=== PATIENT | male | born 1970 | race Caucasian/White ===

== ENCOUNTER 2018-01-05 10:11 | Emergency (ER) | payer BC ==
[2018-01-05] MEDS ORDERED: SODIUM CHLORIDE 0.9% 500 ML IV STA (11:17)
--- NOTE | 2018-01-05 11:20 | ED ---
General Adult HPI - General Chief complaint: Abdominal Pain Stated complaint: Right lower abdominal pain Time Seen by Provider: 01/05/18 10:41 Source: patient, RN notes reviewed Mode of arrival: ambulatory Limitations: no limitations - History of Present Illness Initial comments: 47-year-old male with no significant past medical history presents for evaluation of right upper quadrant pain. Patient was seen at an outside emergency department for same pain Friday night. This began shortly after eating. He had several episodes of nausea and vomiting. This is been resolving over the past 24 hours. He has had persistent diarrhea throughout the past 3 days. Pain is constant in nature, localized to the right upper quadrant and right flank. He denies any dysuria. Denies any lower abdominal pain. Denies hematuria. Denies testicular or scrotal pain. Denies cough or cold symptoms. Denies central chest pain. Laboratory studies and computed tomography scan are available for review from previous ER visit. - Related Data Home Medications Medication Instructions Recorded Confirmed Unknown Otc Acid Bottom Filler 1 tab PO DAILY PRN 01/05/18 01/05/18 Previous Rx's Medication Instructions Recorded Ibuprofen [Motrin] 600 mg PO Q8HR PRN #24 tab 01/05/18 Allergies Allergy/AdvReac Type Severity Reaction Status Date / Time No Known Allergies Allergy Verified 01/05/18 10:26 Review of Systems ROS Statement: Those systems with pertinent positive or pertinent negative responses have been documented in the HPI. ROS Other: All systems not noted in ROS Statement are negative. Past Medical History Past Medical History: No Reported History History of Any Multi-Drug Resistant Organisms: None Reported Past Surgical History: Hernia Repair Past Psychological History: No Psychological Hx Reported Smoking Status: Former smoker Past Alcohol Use History: None Reported Past Drug Use History: None Reported General Exam Limitations: no limitations General appearance: alert, in no apparent distress Head exam: Present: atraumatic, normocephalic Eye exam: Present: normal appearance, PERRL ENT exam: Present: normal exam Neck exam: Present: normal inspection. Absent: tenderness, meningismus Respiratory exam: Present: normal lung sounds bilaterally. Absent: respiratory distress Cardiovascular Exam: Present: regular rate, normal rhythm GI/Abdominal exam: Present: soft, tenderness (Mild right upper quadrant tenderness to palpation). Absent: distended, guarding, rebound Extremities exam: Present: normal inspection, normal capillary refill Back exam: Present: CVA tenderness (R) Neurological exam: Present: alert, oriented X3 Psychiatric exam: Present: normal affect, normal mood Skin exam: Present: warm, dry, intact. Absent: cyanosis, diaphoretic Course Vital Signs 01/05/18 10:15 Temperature 98.1 F Pulse Rate 70 Respiratory 20 Rate Blood Pressure 133/86 O2 Sat by Pulse 99 Oximetry Medical Decision Making - Medical Decision Making 47-year-old male presenting for reevaluation of right upper quadrant pain. CT was reviewed from previous ER visit, this was negative for any acute causes to explain the patient's right upper quadrant pain. Laboratory studies were Obtained, normal white blood cell count, stable hemoglobin. Lites within normal limits. Liver enzymes and total bili are within normal limits. Ultrasound is obtained, this is negative for acute cholecystitis, normal common bile duct dilatation. Chest x-ray negative for pneumonia. X-ray negative for obstruction or intraperitoneal free air. Patient will modify his diet, stop drinking pop, he will take Motrin for the pain. He will follow-up with his primary care physician and return with any worsening or changing symptoms. - Lab Data Result diagrams: 01/05/18 10:35 01/05/18 10:35 Lab Results 01/05/18 01/05/18 01/05/18 Range/Units 10:35 10:35 10:35 WBC 4.7 (3.8-10.6) k/uL RBC 5.18 (4.30-5.90) m/uL Hgb 15.3 (13.0-17.5) gm/dL Hct 43.9 (39.0-53.0) % MCV 84.8 (80.0-100.0) fL MCH 29.6 (25.0-35.0) pg MCHC 34.9 (31.0-37.0) g/dL RDW 12.1 (11.5-15.5) % Plt Count 239 (150-450) k/uL Neutrophils % 63 % Lymphocytes % 26 % Monocytes % 6 % Eosinophils % 3 % Basophils % 1 % Neutrophils # 2.9 (1.3-7.7) k/uL Lymphocytes # 1.2 (1.0-4.8) k/uL Monocytes # 0.3 (0-1.0) k/uL Eosinophils # 0.1 (0-0.7) k/uL Basophils # 0.0 (0-0.2) k/uL PT (9.0-12.0) sec INR (<1.2) APTT (22.0-30.0) sec Sodium 143 (137-145) mmol/L Potassium 4.4 (3.5-5.1) mmol/L Chloride 107 (98-107) mmol/L Carbon Dioxide 26 (22-30) mmol/L Anion Gap 10 mmol/L BUN 12 (9-20) mg/dL Creatinine 0.92 (0.66-1.25) mg/dL Est GFR (MDRD) Af Amer >60 (>60 ml/min/1.73 sqM) Est GFR (MDRD) Non-Af >60 (>60 ml/min/1.73 sqM) Glucose 89 (74-99) mg/dL Plasma Lactic Acid Alexis 1.1 (0.7-2.0) mmol/L Calcium 9.9 (8.4-10.2) mg/dL Total Bilirubin 0.5 (0.2-1.3) mg/dL AST 28 (17-59) U/L ALT 54 (21-72) U/L Alkaline Phosphatase 72 (38-126) U/L Total Protein 7.1 (6.3-8.2) g/dL Albumin 4.3 (3.5-5.0) g/dL Amylase 52 (30-110) U/L Lipase 72 (23-300) U/L Urine Color Urine Appearance (Clear) Urine pH (5.0-8.0) Ur Specific [place] (1.001-1.035) Urine Protein (Negative) Urine Glucose (UA) (Negative) Urine Ketones (Negative) Urine Blood (Negative) Urine Nitrite (Negative) Urine Bilirubin (Negative) Urine Urobilinogen (<2.0) mg/dL Ur Leukocyte Esterase (Negative) 01/05/18 01/05/18 Range/Units 10:35 10:35 WBC (3.8-10.6) k/uL RBC (4.30-5.90) m/uL Hgb (13.0-17.5) gm/dL Hct (39.0-53.0) % MCV (80.0-100.0) fL MCH (25.0-35.0) pg MCHC (31.0-37.0) g/dL RDW (11.5-15.5) % Plt Count (150-450) k/uL Neutrophils % % Lymphocytes % % Monocytes % % Eosinophils % % Basophils % % Neutrophils # (1.3-7.7) k/uL Lymphocytes # (1.0-4.8) k/uL Monocytes # (0-1.0) k/uL Eosinophils # (0-0.7) k/uL Basophils # (0-0.2) k/uL PT 10.2 (9.0-12.0) sec INR 1.0 (<1.2) APTT 22.9 (22.0-30.0) sec Sodium (137-145) mmol/L Potassium (3.5-5.1) mmol/L Chloride (98-107) mmol/L Carbon Dioxide (22-30) mmol/L Anion Gap mmol/L BUN (9-20) mg/dL Creatinine (0.66-1.25) mg/dL Est GFR (MDRD) Af Amer (>60 ml/min/1.73 sqM) Est GFR (MDRD) Non-Af (>60 ml/min/1.73 sqM) Glucose (74-99) mg/dL Plasma Lactic Acid Alexis (0.7-2.0) mmol/L Calcium (8.4-10.2) mg/dL Total Bilirubin (0.2-1.3) mg/dL AST (17-59) U/L ALT (21-72) U/L Alkaline Phosphatase (38-126) U/L Total Protein (6.3-8.2) g/dL Albumin (3.5-5.0) g/dL Amylase (30-110) U/L Lipase (23-300) U/L Urine Color Yellow Urine Appearance Clear (Clear) Urine pH 7.0 (5.0-8.0) Ur Specific [place] 1.015 (1.001-1.035) Urine Protein Negative (Negative) Urine Glucose (UA) Negative (Negative) Urine Ketones Negative (Negative) Urine Blood Negative (Negative) Urine Nitrite Negative (Negative) Urine Bilirubin Negative (Negative) Urine Urobilinogen <2.0 (<2.0) mg/dL Ur Leukocyte Esterase Negative (Negative) Disposition Clinical Impression: Abdominal pain Disposition: HOME SELF-CARE Condition: Good Instructions: Abdominal Pain (ED) Prescriptions: Ibuprofen [Motrin] 600 mg PO Q8HR PRN #24 tab PRN Reason: Pain Referrals: None,Stated [Primary Care Provider] - 1-2 days Lyn Shea MD [REFERRING] - 1-2 days Time of Disposition: 12:46
[2018-01-05 11:37] LABS: Appearance,Urine Clear (Clear); Basophils % (A) 1 %; Bilirubin,Urine Negative (Negative); Blood,Urine Negative (Negative); Color,Urine Yellow; Eosinophils # (A) 0.1 k/uL (0-0.7); Eosinophils % (A) 3 %; Glucose,Urine (UA) Negative (Negative); HCT 43.9 % (39.0-53.0); HGB 15.3 gm/dL (13.0-17.5); Ketones,Urine Negative (Negative); Leukocyte Esterase,Urine Negative (Negative); Lymphocytes # (A) 1.2 k/uL (1.0-4.8); Lymphocytes % (A) 26 %; MCH 29.6 pg (25.0-35.0); MCHC 34.9 g/dL (31.0-37.0); MCV 84.8 fL (80.0-100.0); Mean Platelet Volume 6.5; Monocytes # (A) 0.3 k/uL (0-1.0); Monocytes % (A) 6 %; Neutrophils # (A) 2.9 k/uL (1.3-7.7); Neutrophils % (A) 63 %; Nitrite,Urine Negative (Negative); Platelet Count 239 k/uL (150-450); Protein,Urine Negative (Negative); RBC 5.18 m/uL (4.30-5.90); RDW 12.1 % (11.5-15.5); Specific Gravity,Urine 1.015 (1.001-1.035); Urobilinogen,Urine <2.0 mg/dL (<2.0); WBC 4.7 k/uL (3.8-10.6)
--- NOTE | 2018-01-05 11:38 | XR ---
EXAMINATION TYPE: XR chest 2V DATE OF EXAM: 01/05/2018 COMPARISON: NONE HISTORY: Chest pain TECHNIQUE: Frontal and lateral views of the chest are obtained. FINDINGS: There is no focal air space opacity. No evidence for pneumothorax. No pleural effusion. The cardiac silhouette size is within normal limits. The osseous structures are grossly intact. IMPRESSION: 1. No acute cardiopulmonary process.
--- NOTE | 2018-01-05 11:39 | XR ---
EXAMINATION TYPE: XR KUB DATE OF EXAM: 01/05/2018 COMPARISON: NONE HISTORY: Pain TECHNIQUE: Single supine KUB image of the abdomen is obtained FINDINGS: Small bowel demonstrates no evidence for dilatation or air fluid levels. Gas and fecal material is seen in non-distended colon. No convincing evidence for pneumoperitoneum. No unusual calcifications. The lung bases are clear. The osseous structures are intact. IMPRESSION: 1. Overall nonobstructive bowel gas pattern.
[2018-01-05 11:47] LABS: ALT 54 U/L (21-72); AST 28 U/L (17-59); Albumin 4.3 g/dL (3.5-5.0); Alkaline Phosphatase 72 U/L (38-126); Amylase 52 U/L (30-110); Anion Gap 10 mmol/L; Blood Urea Nitrogen 12 mg/dL (9-20); Calcium 9.9 mg/dL (8.4-10.2); Carbon Dioxide 26 mmol/L (22-30); Chloride 107 mmol/L (98-107); Glucose 89 mg/dL (74-99); Lipase 72 U/L (23-300); Potassium 4.4 mmol/L (3.5-5.1); Sodium 143 mmol/L (137-145); Total Bilirubin 0.5 mg/dL (0.2-1.3); Total Protein 7.1 g/dL (6.3-8.2)
[2018-01-05 11:58] LABS: Partial Thromboplastin Time 22.9 sec (22.0-30.0); Prothrombin Time 10.2 sec (9.0-12.0)
--- NOTE | 2018-01-05 12:14 | US ---
EXAMINATION TYPE: US abdomen limited DATE OF EXAM: 01/05/2018 COMPARISON: NONE CLINICAL HISTORY: abdominal pain. EXAM MEASUREMENTS: Liver Length: 13.9 cm Gallbladder Wall: 0.2 cm CBD: 0.2 cm Right Kidney: 11.3 x 4.5 x 5.3 cm Pancreas: Tail obscured by overlying bowel gas Liver: wnl Gallbladder: wnl Evidence for sonographic Santiago's sign: no CBD: wnl Right Kidney: wnl IMPRESSION: 1. No acute process.
[2018-01-05 12:55] VITALS: BP 124/78; PULSE 97; RESP 16; TEMP 967.7
== END 2018-01-05 12:55 | disposition home or self-care (01) ==
LOC: EC 10:11
DX: R10.11 Right upper quadrant pain (principal); R11.2 Nausea with vomiting, unspecified; R19.7 Diarrhea, unspecified; Z87.891 Personal history of nicotine dependence
CPT/HCPCS: 36415; 71046; 74018; 76705; 80053; 81003; 82150; 83605; 83690; 85025; 85610; 85730; 96360; 99285

== ENCOUNTER 2018-06-23 06:45 | Day surgery (SDC) | payer BC ==
[2018-06-17 15:06] VITALS: BMI 24.4
[~2018-06-23 06:45] MED LIST: DEXAMETHASONE SOD PHOSPHATE 10 MG/ML 1 ML VIAL IV ONE; HEPARIN SODIUM,PORCINE 5,000 UNIT/ML 1 ML VIAL SQ ONE; HYDROmorphone 0.5 MG/0.5 ML SYRINGE IVP PRN; LIDOCAINE 1% 20 ML VIAL (10MG/ML) FOR IV START INTRADERMA PRN; MIDAZOLAM 2 MG/2 ML VIAL IV PRN; ONDANSETRON 4 MG/2 ML VIAL IVP ONE; SCOPOLAMINE 1.5MG/72HR PATCH TRANSDERM ONE; ceFAZolin IN SWFI 2 GM/20 ML SYRINGE IVP ONE
[2018-06-23] MEDS ORDERED: LACTATED RINGERS 1,000 ML IV ONE (07:02)
--- NOTE | 2018-06-23 07:48 | P.GSHP ---
History of Present Illness H&P Date: 06/23/18 Chief Complaint: Right upper quadrant pain This is a 47-year-old male who said complaints of right upper quadrant pain. His recent HIDA scan shows evidence of biliary dysfunction. He presents today for laparoscopic cholecystectomy. Past Medical History Past Medical History: No Reported History History of Any Multi-Drug Resistant Organisms: None Reported Past Surgical History: Hernia Repair Additional Past Surgical History / Comment(s): inguinal rt Past Anesthesia/Blood Transfusion Reactions: No Reported Reaction Smoking Status: Former smoker - Past Family History Mother Family Medical History: Cancer Additional Family Medical History / Comment(s): breast Medications and Allergies Home Medications Medication Instructions Recorded Confirmed Type Ibuprofen [Motrin] 600 mg PO Q8HR PRN #24 tab 01/05/18 06/17/18 Rx Allergies Allergy/AdvReac Type Severity Reaction Status Date / Time No Known Allergies Allergy Verified 06/17/18 14:55 Surgical - Exam Vital Signs Temp Pulse Resp BP Pulse Ox 97.8 F 79 18 137/77 98 06/23/18 06:59 06/23/18 06:59 06/23/18 06:59 06/23/18 06:59 06/23/18 06:59 - General well developed, no distress - Eyes PERRL - ENT normal pinna - Neck no masses - Respiratory normal expansion - Cardiovascular Rhythm: regular - Abdomen Abdomen: soft, non tender Assessment and Plan Assessment: Chronic cholecystitis Biliary dysfunction We'll perform laparoscopic cholecystectomy
[2018-06-23] MEDS ORDERED: BUPIVACAINE-EPI 0.5%-1:200,000 10 ML VIAL SQ ONE ×2 (07:49)
[2018-06-23] MEDS ORDERED: ROCURONIUM BROMIDE 10 MG/ML 10 ML VIAL IV ONE (07:55)
[2018-06-23] MEDS ORDERED: MIDAZOLAM 2 MG/2 ML VIAL ONE (07:55)
[2018-06-23] MEDS ORDERED: HYDROmorphone (PF) 1 MG/ML ONE (07:55)
[2018-06-23] MEDS ORDERED: KETOROLAC 30 MG/ML 1 ML VIAL ONE (07:55)
[2018-06-23] MEDS ORDERED: SUCCINYLCHOLINE CHLORIDE 100 MG/5 ML SYR IV ONE (07:55)
[2018-06-23] MEDS ORDERED: LIDOCAINE 1% INJ 10MG/ML (20 ML MDV) ONE (07:55)
[2018-06-23] MEDS ORDERED: NEOSTIGMINE 1 MG/ML 10 ML VIAL ONE (07:55)
[2018-06-23] MEDS ORDERED: PROPOFOL 10 MG/ML 20 ML VIAL IV ONE (07:55)
[2018-06-23] MEDS ORDERED: GLYCOPYRROLATE 0.2 MG/ML 2 ML VIAL ONE (07:55)
[2018-06-23] MEDS ORDERED: fentaNYL (PF) 50 MCG/ML 2 ML AMP ONE (07:55)
[2018-06-23 08:50] VITALS: TEMP 97
[2018-06-23] MEDS ORDERED: diphenhydrAMINE 50 MG/ML 1 ML VIAL IVP ONE (08:54)
--- NOTE | 2018-06-23 08:56 | P.OP ---
Date of Procedure: 06/23/18 Preoperative Diagnosis: Cholecystitis Postoperative Diagnosis: Cholecystitis Procedure(s) Performed: Laparoscopic cholecystectomy Anesthesia: DAVINA Surgeon: Nelson Aviles Pathology: none sent Condition: stable Disposition: PACU Description of Procedure: The patient was placed on the operating table. The patient received a general endotracheal tube anesthesia. The patients abdomen was prepped and draped in the usual sterile fashion. Through an infraumbilical stab incision, the fascia of the anterior abdominal wall was grasped with a pair of Kochers and then the Veress needle was placed in the peritoneal cavity. Position of the Veress needle was confirmed with positive drop test. The abdomen was then insufflated. After adequate insufflation, the 10 mm trocar was placed in the peritoneal cavity. Following this the laparoscope was placed in the peritoneal cavity. The patient was placed in the head-up, right side up position and then a 5 mm trocar was placed in the right lateral and right subcostal position under direct visualization. A 8 mm trocar was placed in the epigastric position. The gallbladder was grasped in the fundus and infundibulum. Traction on the gallbladder was placed in the lateral and the cephalad positions. The triangle of Calot was visualized.. The cystic duct was bluntly dissected until the union of the cystic duct and common bile duct was seen. The cystic duct was then divided and sealed with the Harmonic scissors. A PDS Endoloop was then placed throughout the cystic duct stump. The cystic artery divided and sealed with the Harmonic scissors. The gallbladder was then removed from the liver bed using Harmonic scissors. The gallbladder was then extracted through the epigastric port site. Operative field was checked for any bleeding spots and Harmonic scissors was used to coagulate the liver bed. The abdomen was irrigated. The trocars were removed. The skin was closed using interrupted 3-0 Vicryl suture. Dermabond dressing were applied. The patient tolerated the procedure well.
[2018-06-23 09:02] VITALS: RESP 16
[2018-06-23] MEDS: LACTATED RINGERS 1,000 ML IV SCH ×2 (09:08→09:20)
[2018-06-23] MEDS ORDERED: HYDROcodone/APAP 7.5-325MG 1 EACH TAB PO ONE (09:40)
[2018-06-23 10:46] VITALS: BP 121/74; PULSE 71
== END 2018-06-23 11:21 | disposition home or self-care (01) ==
LOC: OR 06:45
PROVIDERS: ATTEND Surgery
DX: K81.1 Chronic cholecystitis (principal); Z87.891 Personal history of nicotine dependence; Z80.3 Family history of malignant neoplasm of breast
CPT/HCPCS: 47562; 88304; J2250; J1200; J1644; J1100; J2710; J2405; J2001; J3010; J1885; J1170; J0330; J2704; J0690

== ENCOUNTER 2018-10-29 15:08 | Emergency (ER) | payer BC ==
[2018-10-29 15:19] VITALS: TEMP 98
--- NOTE | 2018-10-29 15:47 | XR ---
EXAMINATION TYPE: XR chest 2V DATE OF EXAM: 10/29/2018 COMPARISON: Chest x-ray January 05, 2018. HISTORY: Chest pain. TECHNIQUE: Frontal and lateral views of the chest are obtained. FINDINGS: There is no focal air space opacity, pleural effusion, or pneumothorax seen. The cardiac silhouette size is within normal limits. The osseous structures are intact. IMPRESSION: No acute process. No significant change from prior.
[2018-10-29 17:25] LABS: Basophils % (A) 1 %; Eosinophils # (A) 0.2 k/uL (0-0.7); Eosinophils % (A) 3 %; HCT 45.1 % (39.0-53.0); HGB 15.7 gm/dL (13.0-17.5); Lymphocytes # (A) 1.7 k/uL (1.0-4.8); Lymphocytes % (A) 28 %; MCH 29.6 pg (25.0-35.0); MCHC 34.8 g/dL (31.0-37.0); MCV 85.2 fL (80.0-100.0); Mean Platelet Volume 6.3; Monocytes # (A) 0.3 k/uL (0-1.0); Monocytes % (A) 5 %; Neutrophils # (A) 3.7 k/uL (1.3-7.7); Neutrophils % (A) 62 %; Platelet Count 245 k/uL (150-450); RDW 12.3 % (11.5-15.5)
[2018-10-29 17:35] LABS: Creatine Kinase 79 U/L (55-170)
[2018-10-29 17:37] LABS: ALT 71 U/L (21-72); AST 40 U/L (17-59); Albumin 4.6 g/dL (3.5-5.0); Alkaline Phosphatase 72 U/L (38-126); Anion Gap 8 mmol/L; Blood Urea Nitrogen 14 mg/dL (9-20); Calcium 9.9 mg/dL (8.4-10.2); Carbon Dioxide 27 mmol/L (22-30); Chloride 107 mmol/L (98-107); Glucose 99 mg/dL (74-99); Magnesium 2.1 mg/dL (1.6-2.3); Potassium 4.3 mmol/L (3.5-5.1); Sodium 142 mmol/L (137-145); Total Bilirubin 0.3 mg/dL (0.2-1.3); Total Protein 7.9 g/dL (6.3-8.2)
[2018-10-29 17:48] LABS: Creatine Kinase MB 0.4 ng/mL (0.0-2.4); Partial Thromboplastin Time 22.8 sec (22.0-30.0); Prothrombin Time 9.7 sec (9.0-12.0); Troponin I <0.012 ng/mL (0.000-0.034)
--- NOTE | 2018-10-29 18:24 | ED ---
General Adult HPI - General Chief complaint: Chest Pain Stated complaint: Chest pain, back pain Time Seen by Provider: 10/29/18 18:00 Source: patient, RN notes reviewed Mode of arrival: ambulatory Limitations: no limitations - History of Present Illness Initial comments: 47-year-old male without significant PMH presents to the emergency department with a chief complaint of chest pain 7 days. Patient describes the pain as a burning pain in the center of his chest. He denies any radiating pain. Patient states eating and drinking makes this worse. He states otherwise it is a persistent burning pain, denies alleviating factors. Does admit to a history of GERD. Patient denies any abdominal pain. He states he did have his gallbladder removed 2 months ago. He denies any cardiac history. He also complains of left flank pain 7 days. He states hunching forward seems to make this flank pain better and laying down or standing up straight makes the pain worse. He describes the pain as an aching pain. He denies any midline back pain. Denies saddle anesthesia. 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 He admits to urinary frequency states this has been going on for months. He denies any burning with urination or pain with urination. He denies any fevers or chills at home. Patient has no other complaints at this time including shortness of breath, abdominal pain, nausea or vomiting, headache, or visual changes. - Related Data Previous Rx's Medication Instructions Recorded Famotidine [Pepcid] 20 mg PO BID #20 tablet 10/29/18 Allergies Allergy/AdvReac Type Severity Reaction Status Date / Time No Known Allergies Allergy Verified 10/29/18 18:44 Review of Systems ROS Statement: Those systems with pertinent positive or pertinent negative responses have been documented in the HPI. ROS Other: All systems not noted in ROS Statement are negative. Past Medical History Past Medical History: No Reported History History of Any Multi-Drug Resistant Organisms: None Reported Past Surgical History: Hernia Repair Additional Past Surgical History / Comment(s): inguinal rt Past Anesthesia/Blood Transfusion Reactions: No Reported Reaction Past Psychological History: No Psychological Hx Reported Smoking Status: Former smoker Past Alcohol Use History: None Reported Past Drug Use History: None Reported - Past Family History Mother Family Medical History: Cancer Additional Family Medical History / Comment(s): breast General Exam Limitations: no limitations General appearance: alert, in no apparent distress Head exam: Present: atraumatic, normocephalic, normal inspection Eye exam: Present: normal appearance, PERRL, EOMI. Absent: scleral icterus, conjunctival injection, periorbital swelling ENT exam: Present: normal exam, normal oropharynx, mucous membranes moist, TM's normal bilaterally, normal external ear exam Neck exam: Present: normal inspection, full ROM. Absent: tenderness, meningismus, lymphadenopathy Respiratory exam: Present: normal lung sounds bilaterally. Absent: respiratory distress, wheezes, rales, rhonchi, stridor Cardiovascular Exam: Present: regular rate, normal rhythm, normal heart sounds. Absent: systolic murmur, diastolic murmur, rubs, gallop, clicks GI/Abdominal exam: Present: soft, normal bowel sounds. Absent: distended, tenderness (No tenderness whatsoever noted to the epigastric area or right or left upper or lower quadrants.), guarding, rebound, rigid Back exam: Present: tenderness (tenderness to palpation of the left flank), CVA tenderness (L) (minimal Left CVA tenderness). Absent: vertebral tenderness (no midline or vertebral tenderness) Neurological exam: Present: alert, oriented X3, CN II-XII intact Psychiatric exam: Present: normal affect, normal mood Course Vital Signs 10/29/18 10/29/18 10/29/18 15:15 18:59 20:30 Temperature 98.0 F Pulse Rate 76 70 74 Respiratory 18 16 16 Rate Blood Pressure 137/88 139/88 139/88 O2 Sat by Pulse 99 99 98 Oximetry EKG Findings - EKG Comments: EKG Findings:: Normal sinus rhythm, ventricular rate 64, LA interval 140, QTC 402, no evidence of ST elevation or depression. Medical Decision Making - Medical Decision Making 47-year-old male presents to the emergency department for a chief complaint of burning chest pain worsened after eating for 7 days. Patient had his gallbladder removed about 2 months ago. He denies any abdominal pain. No abdominal tenderness on exam. Lungs are clear to addition bilaterally. Patient also has left flank pain, denies any midline pain. Denies any bladder or bowel changes or saddle anesthesia. Tender to palpation of the left flank. Vitals are stable, patient is well-appearing. CBC and CMP are unremarkable. Troponin negative. This was repeated after 3 hours. Urine does not show any evidence of infection. CT was ordered as patient's complaint involved chest pain as well as back pain to rule out any aortic abnormalities which was negative. However, patient does have a small hiatal hernia which could be causing his pain. Patient was given a GI cocktail and is feeling somewhat better in the emergency department. He was given a prescription for Pepcid. He will follow up with his primary care for this. He does have an appointment. Did discuss returning if he has any worsening symptoms which he is aware of. - Lab Data Result diagrams: 10/29/18 17:09 10/29/18 17:09 Lab Results 10/29/18 10/29/18 10/29/18 Range/Units 17:09 17:09 17:09 WBC 6.0 (3.8-10.6) k/uL RBC 5.30 (4.30-5.90) m/uL Hgb 15.7 (13.0-17.5) gm/dL Hct 45.1 (39.0-53.0) % MCV 85.2 (80.0-100.0) fL MCH 29.6 (25.0-35.0) pg MCHC 34.8 (31.0-37.0) g/dL RDW 12.3 (11.5-15.5) % Plt Count 245 (150-450) k/uL Neutrophils % 62 % Lymphocytes % 28 % Monocytes % 5 % Eosinophils % 3 % Basophils % 1 % Neutrophils # 3.7 (1.3-7.7) k/uL Lymphocytes # 1.7 (1.0-4.8) k/uL Monocytes # 0.3 (0-1.0) k/uL Eosinophils # 0.2 (0-0.7) k/uL Basophils # 0.0 (0-0.2) k/uL PT (9.0-12.0) sec INR (<1.2) APTT (22.0-30.0) sec Sodium 142 (137-145) mmol/L Potassium 4.3 (3.5-5.1) mmol/L Chloride 107 (98-107) mmol/L Carbon Dioxide 27 (22-30) mmol/L Anion Gap 8 mmol/L BUN 14 (9-20) mg/dL Creatinine 0.96 (0.66-1.25) mg/dL Est GFR (CKD-EPI)AfAm >90 (>60 ml/min/1.73 sqM) Est GFR (CKD-EPI)NonAf >90 (>60 ml/min/1.73 sqM) Glucose 99 (74-99) mg/dL Calcium 9.9 (8.4-10.2) mg/dL Magnesium 2.1 (1.6-2.3) mg/dL Total Bilirubin 0.3 (0.2-1.3) mg/dL AST 40 (17-59) U/L ALT 71 (21-72) U/L Alkaline Phosphatase 72 (38-126) U/L Total Creatine Kinase 79 (55-170) U/L CK-MB (CK-2) 0.4 (0.0-2.4) ng/mL CK-MB (CK-2) Rel Index 0.5 Troponin I <0.012 (0.000-0.034) ng/mL Total Protein 7.9 (6.3-8.2) g/dL Albumin 4.6 (3.5-5.0) g/dL Amylase (30-110) U/L Lipase (23-300) U/L Urine Color Urine Appearance (Clear) Urine pH (5.0-8.0) Ur Specific [place] (1.001-1.035) Urine Protein (Negative) Urine Glucose (UA) (Negative) Urine Ketones (Negative) Urine Blood (Negative) Urine Nitrite (Negative) Urine Bilirubin (Negative) Urine Urobilinogen (<2.0) mg/dL Ur Leukocyte Esterase (Negative) 10/29/18 10/29/18 10/29/18 Range/Units 17:09 17:09 18:20 WBC (3.8-10.6) k/uL RBC (4.30-5.90) m/uL Hgb (13.0-17.5) gm/dL Hct (39.0-53.0) % MCV (80.0-100.0) fL MCH (25.0-35.0) pg MCHC (31.0-37.0) g/dL RDW (11.5-15.5) % Plt Count (150-450) k/uL Neutrophils % % Lymphocytes % % Monocytes % % Eosinophils % % Basophils % % Neutrophils # (1.3-7.7) k/uL Lymphocytes # (1.0-4.8) k/uL Monocytes # (0-1.0) k/uL Eosinophils # (0-0.7) k/uL Basophils # (0-0.2) k/uL PT 9.7 (9.0-12.0) sec INR 1.0 (<1.2) APTT 22.8 (22.0-30.0) sec Sodium (137-145) mmol/L Potassium (3.5-5.1) mmol/L Chloride (98-107) mmol/L Carbon Dioxide (22-30) mmol/L Anion Gap mmol/L BUN (9-20) mg/dL Creatinine (0.66-1.25) mg/dL Est GFR (CKD-EPI)AfAm (>60 ml/min/1.73 sqM) Est GFR (CKD-EPI)NonAf (>60 ml/min/1.73 sqM) Glucose (74-99) mg/dL Calcium (8.4-10.2) mg/dL Magnesium (1.6-2.3) mg/dL Total Bilirubin (0.2-1.3) mg/dL AST (17-59) U/L ALT (21-72) U/L Alkaline Phosphatase (38-126) U/L Total Creatine Kinase (55-170) U/L CK-MB (CK-2) (0.0-2.4) ng/mL CK-MB (CK-2) Rel Index Troponin I (0.000-0.034) ng/mL Total Protein (6.3-8.2) g/dL Albumin (3.5-5.0) g/dL Amylase 63 (30-110) U/L Lipase 82 (23-300) U/L Urine Color Light Yellow Urine Appearance Clear (Clear) Urine pH 7.0 (5.0-8.0) Ur Specific [place] 1.007 (1.001-1.035) Urine Protein Negative (Negative) Urine Glucose (UA) Negative (Negative) Urine Ketones Negative (Negative) Urine Blood Negative (Negative) Urine Nitrite Negative (Negative) Urine Bilirubin Negative (Negative) Urine Urobilinogen <2.0 (<2.0) mg/dL Ur Leukocyte Esterase Negative (Negative) 11/29/18 Range/Units 20:40 WBC (3.8-10.6) k/uL RBC (4.30-5.90) m/uL Hgb (13.0-17.5) gm/dL Hct (39.0-53.0) % MCV (80.0-100.0) fL MCH (25.0-35.0) pg MCHC (31.0-37.0) g/dL RDW (11.5-15.5) % Plt Count (150-450) k/uL Neutrophils % % Lymphocytes % % Monocytes % % Eosinophils % % Basophils % % Neutrophils # (1.3-7.7) k/uL Lymphocytes # (1.0-4.8) k/uL Monocytes # (0-1.0) k/uL Eosinophils # (0-0.7) k/uL Basophils # (0-0.2) k/uL PT (9.0-12.0) sec INR (<1.2) APTT (22.0-30.0) sec Sodium (137-145) mmol/L Potassium (3.5-5.1) mmol/L Chloride (98-107) mmol/L Carbon Dioxide (22-30) mmol/L Anion Gap mmol/L BUN (9-20) mg/dL Creatinine (0.66-1.25) mg/dL Est GFR (CKD-EPI)AfAm (>60 ml/min/1.73 sqM) Est GFR (CKD-EPI)NonAf (>60 ml/min/1.73 sqM) Glucose (74-99) mg/dL Calcium (8.4-10.2) mg/dL Magnesium (1.6-2.3) mg/dL Total Bilirubin (0.2-1.3) mg/dL AST (17-59) U/L ALT (21-72) U/L Alkaline Phosphatase (38-126) U/L Total Creatine Kinase (55-170) U/L CK-MB (CK-2) (0.0-2.4) ng/mL CK-MB (CK-2) Rel Index Troponin I <0.012 (0.000-0.034) ng/mL Total Protein (6.3-8.2) g/dL Albumin (3.5-5.0) g/dL Amylase (30-110) U/L Lipase (23-300) U/L Urine Color Urine Appearance (Clear) Urine pH (5.0-8.0) Ur Specific [place] (1.001-1.035) Urine Protein (Negative) Urine Glucose (UA) (Negative) Urine Ketones (Negative) Urine Blood (Negative) Urine Nitrite (Negative) Urine Bilirubin (Negative) Urine Urobilinogen (<2.0) mg/dL Ur Leukocyte Esterase (Negative) Disposition Clinical Impression: GERD (gastroesophageal reflux disease), Atypical chest pain, Hiatal hernia Disposition: HOME SELF-CARE Condition: Good Instructions: Chest Pain (ED), Hiatal Hernia (ED), Gastroesophageal Reflux Disease (ED) Additional Instructions: Please take Pepcid as directed. Please follow-up with primary care in 1-2 days. Return to the emergency department if you have any worsening symptoms. Prescriptions: Famotidine [Pepcid] 20 mg PO BID #20 tablet Is patient prescribed a controlled substance at d/c from ED?: No Referrals: Migdalia Fabian MD [Primary Care Provider] - 1-2 days Time of Disposition: 21:39
[2018-10-29] MEDS ORDERED: MAG HYDROX/AL HYDROX/SIMETH 30 ML, HYOSCYAMINE ELIXIR 10 ML, CIMETIDINE HCL 300 MG, LID... PO STA ×4 (18:25)
[2018-10-29 18:32] LABS: Amylase 63 U/L (30-110); Lipase 82 U/L (23-300)
[2018-10-29 18:35] LABS: Appearance,Urine Clear (Clear); Bilirubin,Urine Negative (Negative); Blood,Urine Negative (Negative); Color,Urine Light Yellow; Glucose,Urine (UA) Negative (Negative); Ketones,Urine Negative (Negative); Leukocyte Esterase,Urine Negative (Negative); Nitrite,Urine Negative (Negative); Protein,Urine Negative (Negative); Specific Gravity,Urine 1.007 (1.001-1.035); Urobilinogen,Urine <2.0 mg/dL (<2.0)
[2018-10-29 19:00] VITALS: BP 139/88
--- NOTE | 2018-10-29 19:43 | CT ---
EXAMINATION TYPE: CT ChestAbdPelvis w con DATE OF EXAM: 10/29/2018 COMPARISON: None HISTORY: chest pain, lower left back pain CT DLP: 913.6 mGycm Automated exposure control for dose reduction was used. CONTRAST: CT scan of the chest, abdomen and pelvis is performed without Oral Contrast and with IV Contrast, pat ient injected with 100 mL of Isovue 300. FINDINGS: The lungs are clear of infiltrate. There is no evidence of a pulmonary mass. There is no pleural effu polina or pneumothorax. There is minimal subsegmental atelectasis at the lung bases. Heart size is norm al. There is no pericardial effusion. There is no mediastinal adenopathy. Thoracic aorta appears norm al. There is no evidence of aneurysm or dissection. There is no hilar mass. There is small hiatal hernia. The remainder of the stomach is normal. Liver spleen pancreas appear no rmal. Bile ducts are not dilated. Gallbladder is absent. There is no adrenal mass. Kidneys show satisfactory contrast opacification. There is no hydronephrosi s. Ureters are not dilated. There is no retroperitoneal adenopathy. Bladder distends smoothly. The prostate measures 4.8 cm. There is no inguinal hernia. There is no rogelio e fluid in the pelvis. I see no intestinal wall thickening. There are no dilated loops. Terminal ileu m appears normal. There is no evidence of thickened appendix. There is no mesenteric edema or adenopa thy. There is no sign of free air. Thoracic and lumbar spine appear intact. I see no bony destructive process. IMPRESSION: Negative CT scan of the chest abdomen pelvis. I do not see a cause for the patient's symp toms.
[2018-10-29] MEDS ORDERED: FAMOTIDINE 20 MG TAB PO STA (20:14)
[2018-10-29 22:09] VITALS: PULSE 64; RESP 18
== END 2018-10-29 22:15 | disposition home or self-care (01) ==
LOC: EC 15:08
DX: K21.9 Gastro-esophageal reflux disease without esophagitis (principal); R07.89 Other chest pain; K44.9 Diaphragmatic hernia without obstruction or gangrene; Z87.891 Personal history of nicotine dependence; Z98.890 Other specified postprocedural states; Z53.29 Procedure and treatment not carried out because of patient's decision for other reasons
CPT/HCPCS: 36415; 71046; 71260; 74177; 80053; 81003; 82150; 82550; 82553; 83690; 83735; 84484; 85025; 85610; 85730; 93005; 99285

== ENCOUNTER → 2019-01-14 | Outpatient (CLI) | payer BC ==
--- NOTE | 2019-01-14 11:35 | CONS ---
CONSULTATION DATE OF SERVICE: 01/14/2019 A 48-year-old gentleman who has been evaluated in the [facility] for possible obstructive sleep apnea-hypopnea syndrome. HISTORY OF PRESENT ILLNESS/SLEEP-WAKE EVALUATION: Patient usual sleep schedule on weekdays from 9 p.m. until 5 a.m. and on weekends from around 10 - 11 p.m. to 7 - 9: a.m. No problems with falling asleep. No TV in bedroom. He sleeps in different positions with his with loud snoring and multiple awakenings from sleep about 4 times with 2 episodes of nocturia. No history of hypnagogic hallucinations, sleep paralysis or cataplexy. In the morning, patient wakes up tired, falling asleep during the day. Has episodes of irritability. [place] Sleepiness Scale significantly increased to 14. PAST MEDICAL HISTORY: Positive for acid reflux. PAST SURGICAL HISTORY: Cholecystectomy, hernia repair. MEDICATIONS: Omeprazole. SOCIAL HISTORY: Positive for smoking for many years ago. No smoking again for many years. Alcohol consumption, occasional. FAMILY HISTORY: Hypertension, arthritis, asthma, sleep apnea, cancer. REVIEW OF SYSTEMS: Multiple awakenings from sleep, sleepiness during the day. PHYSICAL EXAM: gentleman without distress. BP 124/71, HR 72, RR 16, height 5 foot 7 inches, weight 182 pounds. Body mass index 28.5, temperature 98.0, oxygen saturation on room air 100%. OROPHARYNX: Moderately low position of soft palate, slight restriction of nasal breathing. NECK: 16 inches in circumference. LUNGS Clear to percussion and to auscultation. Good air exchange. No wheezing or rhonchi. HEART S1, S2 regular. No murmurs, gallops, or rubs. ABDOMEN Soft and nontender. Bowel sounds are present. No organomegaly appreciated. EXTREMITIES No clubbing or cyanosis. SOLVENT PLANT OPERATOR Awake, alert, and oriented X3. Cranial nerves 2 to 7 intact. There is no fasciculation or atrophy. noted. No focal deficits observed. IMPRESSION: 1. Snoring, multiple awakenings from sleep, moderately low position of soft palate. Neck 16 inches in circumference. Possible obstructive sleep apnea-hypopnea syndrome. 2. Excessive daytime sleepiness. [place] Sleepiness Scale increased to 14. Differential diagnosis should include hypersomnia including narcolepsy. 3. Acid reflux. 4. Overweight, body mass index 28.5. 5. Status post cholecystectomy. 6. Status post hernia repair. PLAN: 1. Home sleep apnea test for evaluation of patient breathing during the sleep. 2. If home sleep test will be negative, polysomnogram with the following multiple sleep latency test for objective evaluation of patient symptoms of excessive daytime sleepiness. 3. Watching and losing weight. 4. Sleep hygiene with regular time in bed for at least 8 hours. 5. No driving if feeling sleepiness. 6. CPAP titration for correction of respiratory abnormalities if sleep study is positive for obstructive sleep apnea-hypopnea syndrome. Sincerely, Todd Viveros MD, PhD, FAASM Diplomat of [employer] [employer] Subscription Crew Leader of [facility] [place] MMODL / IJN: [id number] /
== END ==
LOC: SLEEP 10:28
PROVIDERS: ATTEND Internal Medicine
DX: G47.10 Hypersomnia, unspecified (principal); K21.9 Gastro-esophageal reflux disease without esophagitis; E66.3 Overweight; F17.200 Nicotine dependence, unspecified, uncomplicated; Z90.49 Acquired absence of other specified parts of digestive tract; Z98.890 Other specified postprocedural states; Z68.28 Body mass index [BMI] 28.0-28.9, adult; Z79.899 Other long term (current) drug therapy
CPT/HCPCS: 99211

== ENCOUNTER → 2019-04-07 | Outpatient (CLI) | payer BC ==
--- NOTE | 2019-04-07 17:04 | PN ---
PROGRESS NOTE DATE OF SERVICE: 04/07/2019 This patient is a 48-year-old gentleman who has been followed in Sleep Center for treatment of his sleep problems. Patient had a home sleep apnea test and then two polysomnograms which did not show any abnormalities of respiration at all and no significant amount of periodic limb movements. At the same time, on both polysomnograms the patient had sleep efficiency of about 60% and he slept around 4-1/2 hours and 4 hours and 40 minutes on both sleep studies with recording which was done for more than 7 hours. Sleep latency was prolonged on the sleep study from 04/04/2019 and on the sleep study from 02/21/2019 for more than 30 minutes. Multiple sleep latency test which was done on 04/05/2019 showed mean sleep latency 12.2 minutes on the basis of 5 naps with no sleep-onset REM periods documented. The patient continues to have symptoms of excessive daytime sleepiness. Rex Sleepiness Scale today is 14. Sometimes he takes naps after he comes back from work from about 2 p.m. to 4 p.m. His sleep schedule is usually from 9:30 or 10 p.m. until 5 a.m., which is about 7 to 7-1/2 hours per night. MEDICATIONS: Omeprazole. PHYSICAL EXAMINATION: GENERAL: A pleasant patient in no distress. VITAL SIGNS: BP 127/56, HR 74, RR 16, height 5 feet 7 inches, weight 188, body mass index 29.4, temperature 98. Oxygen saturation at room air 98%. HEENT: PERRLA, EOMI. Evaluation of oropharynx showed tongue protrudes midline. Low position of soft palate. NECK: Supple. No JVD. Thyroid is not palpable. LUNGS: Clear to percussion and to auscultation. Good air exchange. No wheezing or rhonchi. HEART: S1, S2 regular. No murmurs, gallops or rubs. ABDOMEN: Soft and nontender. Bowel sounds are present. No organomegaly. EXTREMITIES: No clubbing or cyanosis. VOYAGE MANAGEMENT SYSTEM OPERATOR: Awake, alert, and oriented X3. Cranial nerves 2 to 7 intact. There is no fasciculation or atrophy. noted. No focal deficits observed. IMPRESSION: 1. No significant respiratory abnormalities have been confirmed by results of home sleep study and two polysomnograms. 2. Low sleep efficiency on sleep studies with prolonged sleep latency, multiple awakenings from sleep which indicate insomnia. 3. Multiple sleep latency test did not confirm significant excessive daytime sleepiness. No sleep-onset REM periods, which excluded narcolepsy. 4. No significant periodic limb movements during the night. 5. History of acid reflux. 6. Overweight. 7. Status post cholecystectomy. 8. Status post hernia repair. PLAN: 1. I will start the patient on small doses of sleeping pills. 2. Sleep hygiene with regular time in bed for 7-1/2 hours. 3. Precautions related to driving. No driving if feeling any sleepiness. 4. Watching and losing weight. Thank you very much for allowing me to participate in the management of your patient. Sincerely, Todd Viveros MD, PhD, FAASM Diplomat of [employer] Pe[employer] Picker of [facility] [place] MAYURI / AJ: [id number] /
== END | disposition home or self-care (01) ==
LOC: SLEEP 14:31
PROVIDERS: ATTEND Internal Medicine
DX: G47.00 Insomnia, unspecified (principal); K21.9 Gastro-esophageal reflux disease without esophagitis; E66.3 Overweight; Z68.29 Body mass index [BMI] 29.0-29.9, adult; Z90.49 Acquired absence of other specified parts of digestive tract; Z98.890 Other specified postprocedural states; Z79.899 Other long term (current) drug therapy

== ENCOUNTER 2020-04-17 11:55 | Day surgery (SDC) | payer BC ==
[2020-04-14 12:37] VITALS: BMI 23.0
[~2020-04-17 11:55] MED LIST changes: -DEXAMETHASONE SOD PHOSPHATE 10 MG/ML 1 ML VIAL IV ONE; -HEPARIN SODIUM,PORCINE 5,000 UNIT/ML 1 ML VIAL SQ ONE; -HYDROmorphone 0.5 MG/0.5 ML SYRINGE IVP PRN; +LACTATED RINGERS 1,000 ML IV SCH; -LIDOCAINE 1% 20 ML VIAL (10MG/ML) FOR IV START INTRADERMA PRN; -MIDAZOLAM 2 MG/2 ML VIAL IV PRN; -ONDANSETRON 4 MG/2 ML VIAL IVP ONE; -SCOPOLAMINE 1.5MG/72HR PATCH TRANSDERM ONE; -ceFAZolin IN SWFI 2 GM/20 ML SYRINGE IVP ONE
[2020-04-17 12:39] VITALS: RESP 16; TEMP 97
[2020-04-17] MEDS ORDERED: PROPOFOL 10 MG/ML 20 ML VIAL IV ONE (13:15)
[2020-04-17] MEDS ORDERED: LIDOCAINE 1% INJ 10MG/ML (20 ML MDV) ONE (13:15)
--- NOTE | 2020-04-17 13:23 | P.GSHP ---
History of Present Illness H&P Date: 04/17/20 Chief Complaint: GERD This a 49-year-old male safer EGD. He's had issues with GERD. Past Medical History Past Medical History: GERD/Reflux History of Any Multi-Drug Resistant Organisms: None Reported Past Surgical History: Cholecystectomy, Hernia Repair Additional Past Surgical History / Comment(s): inguinal rt, myringotomy & tubes Past Anesthesia/Blood Transfusion Reactions: No Reported Reaction Smoking Status: Former smoker - Past Family History Mother Family Medical History: Cancer Additional Family Medical History / Comment(s): breast Medications and Allergies Home Medications Medication Instructions Recorded Confirmed Type Omeprazole [PriLOSEC] 40 mg PO DAILY 04/14/20 04/17/20 History Allergies Allergy/AdvReac Type Severity Reaction Status Date / Time No Known Allergies Allergy Verified 04/17/20 12:29 Surgical - Exam Vital Signs Temp Pulse Resp BP Pulse Ox 97.0 F L 72 16 128/85 97 04/17/20 12:37 04/17/20 12:37 04/17/20 12:37 04/17/20 12:37 04/17/20 12:37 - General well developed, well nourished, no distress - Eyes PERRL - ENT normal pinna - Neck no masses - Respiratory normal expansion - Cardiovascular Rhythm: regular - Abdomen Abdomen: soft, non tender Assessment and Plan Assessment: GERD. We'll perform EGD.
--- NOTE | 2020-04-17 13:31 | P.OP ---
Date of Procedure: 04/17/20 Preoperative Diagnosis: GERD Postoperative Diagnosis: Antral gastritis Hiatal hernia Esophagitis Procedure(s) Performed: EGD Anesthesia: MAC Surgeon: Nelson Aviles Pathology: other (Antrum, esophagus) Condition: stable Disposition: PACU Description of Procedure: The patient's placed on the endoscopy table in the lateral position. He received IV sedation. The gastroscope placed oropharynx passed in the esophagus into the stomach. Scope was then placed through the pylorus. The first and second portion of the duodenum appeared normal. Scope was then brought back the antrum and this appeared mildly inflamed. A biopsies performed. The scope was unretroflexed and remainder the stomach appeared normal. The patient had a small moderate size hiatal hernia. The GE junction was at 38 7 is. The distal esophagus appeared inflamed and a biopsies performed. The proximal esophagus appeared normal. Scope was then withdrawn for patient.
[2020-04-17 13:58] VITALS: BP 112/72; PULSE 66
== END 2020-04-17 14:03 | disposition home or self-care (01) ==
LOC: ORWHC2ENDO 11:55
PROVIDERS: ATTEND Surgery
DX: K21.0 Gastro-esophageal reflux disease with esophagitis (principal); K29.50 Unspecified chronic gastritis without bleeding; K44.9 Diaphragmatic hernia without obstruction or gangrene; Z87.891 Personal history of nicotine dependence; Z90.49 Acquired absence of other specified parts of digestive tract; Z98.890 Other specified postprocedural states; Z80.3 Family history of malignant neoplasm of breast; Z97.2 Presence of dental prosthetic device (complete) (partial); Z79.899 Other long term (current) drug therapy
CPT/HCPCS: 88305; 87635; 43239; J2001; J2704

== ENCOUNTER 2020-04-19 11:04 | Inpatient (IN) | payer BC ==
[~2020-04-19 11:04] MED LIST changes: +HEPARIN SODIUM,PORCINE 5,000 UNIT/ML 1 ML VIAL SQ ONE; -LACTATED RINGERS 1,000 ML IV SCH
[2020-04-19] MEDS: LACTATED RINGERS 1,000 ML IV SCH ×2 (11:48→20:37)
[2020-04-19] MEDS ORDERED: ONDANSETRON 4 MG/2 ML VIAL IVP ONE (11:49)
[2020-04-19] MEDS ORDERED: DEXAMETHASONE SOD PHOSPHATE 10 MG/ML 1 ML VIAL IV ONE (11:49)
[2020-04-19] MEDS ORDERED: LIDOCAINE 1% (10MG/ML) FOR IV START INTRADERMA ONE (11:49)
--- NOTE | 2020-04-19 12:31 | P.GSHP ---
History of Present Illness H&P Date: 04/19/20 Chief Complaint: GERD This a 49-year-old male referred from Dr. Fabian. Kya patient has had long- standing problems with reflux esophagitis. The patient underwent recent EGD is found have evidence of esophagitis. Patient has been well informed on the pro cedure of laparoscopic Libertad fundoplication. The patient is aware the risk of the conversion to the open procedure, risk of injury to the stomach, liver and spleen. The patient is also a risk of recurrent GERD and dysphagia symptoms. The patient understands there is a postoperative diet of full liquids for 2 weeks after surgery. Past Medical History Past Medical History: GERD/Reflux History of Any Multi-Drug Resistant Organisms: None Reported Past Surgical History: Cholecystectomy, Hernia Repair Additional Past Surgical History / Comment(s): inguinal rt, myringotomy & tubes Past Anesthesia/Blood Transfusion Reactions: No Reported Reaction Smoking Status: Former smoker - Past Family History Mother Family Medical History: Cancer Additional Family Medical History / Comment(s): breast Medications and Allergies Home Medications Medication Instructions Recorded Confirmed Type Omeprazole [PriLOSEC] 40 mg PO DAILY 04/14/20 04/19/20 History Allergies Allergy/AdvReac Type Severity Reaction Status Date / Time No Known Allergies Allergy Verified 04/19/20 11:26 Surgical - Exam Vital Signs Temp Pulse Resp BP Pulse Ox 97.7 F 73 16 137/85 99 04/19/20 11:46 04/19/20 11:46 04/19/20 11:46 04/19/20 11:46 04/19/20 11:46 - General well developed, well nourished, no distress - Eyes PERRL - ENT normal pinna - Neck no masses - Respiratory normal expansion - Cardiovascular Rhythm: regular - Abdomen Abdomen: soft, non tender Assessment and Plan Assessment: GERD. We'll perform laparoscopic Libertad fundal plication.
[2020-04-19] MEDS ORDERED: GLYCOPYRROLATE 0.2 MG/ML 2 ML VIAL ONE (12:56)
[2020-04-19] MEDS ORDERED: PROPOFOL 10 MG/ML 20 ML VIAL IV ONE (12:56)
[2020-04-19] MEDS ORDERED: SUCCINYLCHOLINE CHLORIDE 100 MG/5 ML SYR IV ONE (12:56)
[2020-04-19] MEDS ORDERED: ROCURONIUM BROMIDE 10 MG/ML 5 ML VIAL IV ONE (12:56)
[2020-04-19] MEDS ORDERED: fentaNYL (PF) 50 MCG/ML 2 ML AMP ONE (12:56)
[2020-04-19] MEDS ORDERED: LIDOCAINE 1% INJ 10MG/ML (20 ML MDV) ONE (12:56)
[2020-04-19] MEDS ORDERED: KETOROLAC 30 MG/ML 1 ML VIAL ONE (12:56)
[2020-04-19] MEDS ORDERED: MIDAZOLAM 2 MG/2 ML VIAL ONE (12:56)
[2020-04-19] MEDS ORDERED: NEOSTIGMINE 1 MG/ML 10 ML VIAL ONE (12:56)
[2020-04-19] MEDS ORDERED: BUPIVACAIN-EPI 0.25%-1:200,000 30 ML VIAL SQ ONE (13:30)
[2020-04-19] MEDS ORDERED: ONDANSETRON 4 MG/2 ML VIAL IVP PRN (13:52)
--- NOTE | 2020-04-19 13:52 | P.OP ---
Date of Procedure: 04/19/20 Preoperative Diagnosis: GERD Postoperative Diagnosis: GERD Procedure(s) Performed: Laparoscopic Libertad fundal plication Anesthesia: DAVINA Surgeon: Nelson Aviles Estimated Blood Loss (ml): 5 Pathology: other Condition: stable Disposition: PACU Description of Procedure: HThe patient was placed on the operating table in the supine position. The patient received general anesthesia. And was placed in dorsal lithotomy position. The patient was prepped and draped in the usual sterile fashion. The skin incision sites were anesthetized with 1% local Xylocaine. The skin was incised in the left periumbilical area and then using a blade less 5 mm trocar under direct visualization panel cavity was entered. After adequate insufflation the laparoscope was then placed into the peritoneal cavity. Next a 5 mm trochars placed in the right epigastric position. Another 5 millimeter trocar the right lateral position. Another 5 millimeter trocar in the left lateral position a 5 mm trocar is placed in the left epigastric position. And then the initial 5 mm trocar was exchanged for a 10 mm trocar. The left lateral lobe liver was retracted. The hernia was seen. The crural defect was then dissected using the Harmonic scissors device. A 360 crural dissection was performed the esophagus stomach was reduced back into the peritoneal Cavity. The crural defect was then closed using 2-0 Ethibond suture. Next the fundus of the stomach was mobilized using the [place] scissors device. and then a 58- Lithuanian bougie dilator was placed oropharynx passed into the esophagus and stomach the fundal plication wrap was then performed by grasping the fundus posteriorly and bringing it around the esophagus and stomach fundoplication was then performed using 2-0 Ethibond suture. Care was taken that the fundal location rested over top of the intra-abdominal esophagus. There was no injury seen to the stomach or esophagus. The dilator was then withdrawn. The abdomen was irrigated there is no bleeding seen. The trochars were then withdrawn and then skin incision sites were closed using 3-0 Monocryl suture Steri-Strips are applied. Patient thought procedure well and sent to recovery room in stable condition.
[2020-04-19] MEDS: HYDROmorphone 0.5 MG/0.5 ML SYRINGE IVP PRN ×4 (14:13→14:33)
[2020-04-19] MEDS ORDERED: D5-0.45% NACL WITH KCL 20MEQ/L 1,000 ML IV SCH (15:00)
--- NOTE | 2020-04-19 16:01 | FL ---
EXAMINATION TYPE: FL esophagus cervic/pharynx DATE OF EXAM: 04/19/2020 LIMITED UGI-ESOPHAGRAM: CLINICAL HISTORY: History of hiatal hernia status post Libertad fundoplication surgery earlier today. TECHNIQUE: Limited esophagram is performed utilizing 50 oz of Isovue-370. A total of 17 seconds of f luoroscopic time was utilized during procedure. 18 spot images saved to PACS. Comparison: Whole-body CT October 29, 2018 FINDINGS: The patient swallowed contrast without difficulty or delay. Mild esophageal dysmotility wi th some abnormal secondary tertiary contractions. Surgical clips at gastroesophageal junction at leve l of diaphragm noted. There is good flow of contrast along the diaphragmatic hiatus into the stomach, there is no evidence of contrast extravasation to suggest leak. No persistent hiatal hernia is seen. Patient remains asymptomatic. IMPRESSION: No evidence of leak or significant obstruction status post Nick fundoplication surgery earlier today.
[2020-04-19] MEDS: D5-0.45% NACL WITH KCL 20MEQ/L 1,000 ML IV SCH ×2 (17:02→23:42)
[2020-04-19] MEDS: METOCLOPRAMIDE 5 MG/ML 2 ML VIAL IVP SCH ×2 (17:02→23:42)
[2020-04-19] MEDS: FAMOTIDINE 20 MG/2 ML VIAL IV SCH (20:43)
[2020-04-19] MEDS: HYDROmorphone 1 MG/ML 1 ML SYRINGE IVP PRN (20:44)
[2020-04-20] MEDS: HYDROmorphone 1 MG/ML 1 ML SYRINGE IVP PRN (05:30)
[2020-04-20] MEDS: METOCLOPRAMIDE 5 MG/ML 2 ML VIAL IVP SCH (05:30)
[2020-04-20] MEDS: D5-0.45% NACL WITH KCL 20MEQ/L 1,000 ML IV SCH (08:07)
[2020-04-20] MEDS: FAMOTIDINE 20 MG/2 ML VIAL IV SCH (08:07)
--- NOTE | 2020-04-20 08:27 | P.CONS ---
History of Present Illness - History of Present Illness This is a pleasant 49 years old male with past medical history of gastroesop hageal reflux disease, she was admitted under surgical service for elective laparoscopic Libertad fundoplication. Today is postop day #1. Medical consult was requested for medical management. Patient was operatively is doing well with only some pain expected at the surgical site, no nausea vomiting. He'll be started on liquid diet. Review of Systems CONSTITUTIONAL: No fever, no malaise, no fatigue. HEENT: No recent visual problems or hearing problems. Denied any sore throat. CARDIOVASCULAR: No orthopnea, PND, no palpitations, no syncope. PULMONARY: No shortness of breath, no cough, no hemoptysis. GASTROINTESTINAL: No diarrhea, no nausea, no vomiting, no abdominal pain. Normoactive bowel sounds. NEUROLOGICAL: No headaches, no weakness, no numbness. HEMATOLOGICAL: Denies any bleeding or petechiae. GENITOURINARY: Denies any burning micturition, frequency, or urgency. MUSCULOSKELETAL/RHEUMATOLOGICAL: Denies any joint pain, swelling, or any muscle pain. ENDOCRINE: Denies any polyuria or polydipsia. Past Medical History Past Medical History: GERD/Reflux History of Any Multi-Drug Resistant Organisms: None Reported Past Surgical History: Cholecystectomy, Hernia Repair Additional Past Surgical History / Comment(s): inguinal rt, myringotomy & tubes Past Anesthesia/Blood Transfusion Reactions: No Reported Reaction Smoking Status: Former smoker - Past Family History Mother Family Medical History: Cancer Additional Family Medical History / Comment(s): breast Medications and Allergies Home Medications Medication Instructions Recorded Confirmed Type Omeprazole [PriLOSEC] 40 mg PO DAILY 04/14/20 04/19/20 History Allergies Allergy/AdvReac Type Severity Reaction Status Date / Time No Known Allergies Allergy Verified 04/19/20 11:26 Physical Exam Vitals: Vital Signs Temp Pulse Pulse Resp BP BP Pulse Ox 04/20/20 04:45 97.6 F 67 18 126/84 99 04/19/20 23:45 87 73 16 04/19/20 20:39 98.5 F 87 16 135/81 98 04/19/20 17:57 73 154/91 97 04/19/20 17:56 70 137/82 94 L 04/19/20 17:35 88 126/75 95 04/19/20 16:05 71 129/77 94 L 04/19/20 15:35 73 125/75 94 L 04/19/20 15:20 68 127/76 93 L 04/19/20 15:05 98.3 F 70 16 143/77 97 04/19/20 14:46 69 16 133/71 95 04/19/20 14:31 66 16 135/74 100 04/19/20 14:16 63 16 144/77 100 04/19/20 14:05 96.8 F L 70 16 146/77 99 04/19/20 11:46 97.7 F 73 16 137/85 99 Intake and Output 04/19/20 04/20/20 04/20/20 22:59 06:59 14:59 Intake Total 700 1000 Balance 700 1000 Intake: Intake, IV Titration 500 1000 Amount D5-0.45% NaCl with KCl 500 1000 20Meq/l 1,000 ml @ 125 mls/hr IV .Q8H RANDY Rx#: [id number] Oral 200 Other: Voiding Method Toilet Toilet # Voids 2 GENERAL: The patient is alert and oriented x3, not in any acute distress. Well developed, well nourished. HEENT: Pupils are round and equally reacting to light. EOMI. No scleral icterus. No conjunctival pallor. Normocephalic, atraumatic. No pharyngeal erythema. No thyromegaly. CARDIOVASCULAR: S1 and S2 present. No murmurs, rubs, or gallops. PULMONARY: Chest is clear to auscultation, no wheezing or crackles. ABDOMEN: Soft, nontender, nondistended, normoactive bowel sounds. No palpable organomegaly. MUSCULOSKELETAL: No joint swelling or deformity. EXTREMITIES: No cyanosis, clubbing, or pedal edema. NEUROLOGICAL: Gross neurological examination did not reveal any focal deficits. SKIN: No rashes. No petechiae Assessment and Plan Assessment: Gastroesophageal reflux disease with esophagitis is status post Libertad fundoplication Plan: This is a pleasant 49 years old male who presents for laparoscopic Libertad fundoplication for his GERD disease. Pain management. Continue with liquid diet Labs and medication were reviewed.. Continue same treatment. Continue with symptomatic treatment. Resume home medication. Monitor lytes and vitals. DVT and GI prophylaxis. Further recommendations of the clinical course of the patient Patient was instructed to follow up with his family doctor in 1 week Thank you for your consult
[2020-04-20] MEDS ORDERED: ENOXAPARIN 40 MG/0.4 ML SYRINGE SQ SCH (09:00)
[2020-04-20 09:46] VITALS: BMI 26.2
[2020-04-20] MEDS ORDERED: HYDROcodone/APAP 5-325MG 1 EACH TAB PO PRN (10:45)
[2020-04-20 12:00] VITALS: BP 131/72; PULSE 71; RESP 17; TEMP 98.6
--- NOTE | 2020-04-20 13:47 | P.DS ---
Providers Date of admission: 04/19/20 11:04 Expected date of discharge: 04/20/20 Attending physician: Nelson Aviles Consults: 04/19/20 13:52 Consult Physician Routine Consulting Provider: Ruba Sage Consult Reason/Comments: Medical management Do you want consulting provider notified?: Yes Primary care physician: Migdalia Fabian Hospital Course: 49-year-old male who underwent laparoscopic Libertad fundoplication with Dr. Aviles. Patient is doing well postoperatively without any immediate complications. Esophagram is negative for leak or obstruction. He is tolerating liquid diet without nausea or vomiting. Vital signs are stable. He is stable for discharge home today. Please see EMR for further hospital course details. Discharge diagnosis 1. GERD, status post Libertad fundoplication Nurse practitioner note has been reviewed by physician. Signing provider agrees with the documented findings, assessment, and plan of care. Patient Condition at Discharge: Stable Plan - Discharge Summary Discharge Rx Participant: Yes New Discharge Prescriptions: New Hydrocodone/Acetaminophen [Makinen 5-325] 1 tab PO Q6HR PRN #10 tab PRN Reason: Pain No Action Omeprazole [PriLOSEC] 40 mg PO DAILY Discharge Medication List Omeprazole [PriLOSEC] 40 mg PO DAILY 04/14/20 [History] Hydrocodone/Acetaminophen [Makinen 5-325] 1 tab PO Q6HR PRN #10 tab 04/20/20 [Rx] Follow up Appointment(s)/Referral(s): Migdalia Fabian MD [Primary Care Provider] - 04/27/20 3:20 pm Nelson Aviles MD [STAFF PHYSICIAN] - 05/04/20 1:30 pm Activity/Diet/Wound Care/Special Instructions: No driving while taking Makinen No lifting over 10 pounds You may shower. No soaking or tub baths Very light activity until you are reevaluated at your follow up appointment with your surgeon Full liquid diet for 2 weeks
== END 2020-04-20 14:00 | disposition home or self-care (01) | DRG 328 ==
LOC: 2ORMAIN 11:04 → 5NMEDONC 14:14
PROVIDERS: ADMIT Surgery; ATTEND Surgery
PROC: 0DV44ZZ Restriction of Esophagogastric Junction, Percutaneous Endoscopic Approach (ICD-10-PCS; principal; 2020-04-19 13:20)
DX: K21.0 Gastro-esophageal reflux disease with esophagitis (principal); Z87.891 Personal history of nicotine dependence; Z90.49 Acquired absence of other specified parts of digestive tract; Z98.890 Other specified postprocedural states; Z80.3 Family history of malignant neoplasm of breast; Z11.59 Encounter for screening for other viral diseases
CPT/HCPCS: 74210

== ENCOUNTER → 2021-08-28 | Outpatient (CLI) | payer BC ==
--- NOTE | 2021-08-28 16:02 | US ---
EXAMINATION TYPE: US venous doppler duplex LE RT DATE OF EXAM: 08/28/2021 3:55 PM COMPARISON: NONE CLINICAL HISTORY: 50-year-old male M79.604 pain in right leg. Right leg pain. No injury. No redness . No swelling. No hx DVT. SIDE PERFORMED: Right TECHNIQUE: The lower extremity deep venous system is examined utilizing real time linear array sonog constance with graded compression, doppler sonography and color-flow sonography. FINDINGS: VESSELS IMAGED: Common Femoral Vein Deep Femoral Vein Greater Saphenous Vein * Femoral Vein Popliteal Vein Small Saphenous Vein * Proximal Calf Veins (* superficial vessels) Right Leg: Negative for DVT IMPRESSION: No evidence for DVT within the right lower extremity imaged from the groin to the upper calf.
== END | disposition home or self-care (01) ==
LOC: RADUSWWP 15:34
PROVIDERS: ATTEND Internal Medicine
DX: M79.604 Pain in right leg (principal)

== ENCOUNTER 2023-03-19 12:17 | Day surgery (SDC) | payer BC ==
[~2023-03-19 12:17] MED LIST changes: -HEPARIN SODIUM,PORCINE 5,000 UNIT/ML 1 ML VIAL SQ ONE; +LACTATED RINGERS 1,000 ML IV SCH; +LIDOCAINE 1% (10MG/ML) FOR IV START INTRADERMA PRN
[2023-03-19 13:08] VITALS: TEMP 97.3
[2023-03-19] MEDS ORDERED: LIDOCAINE 2% INJ 20 MG/ML (2 ML VIAL) ONE (13:39)
[2023-03-19] MEDS ORDERED: PROPOFOL 10 MG/ML 20 ML VIAL IV ONE (13:39)
--- NOTE | 2023-03-19 13:56 | P.PCN ---
Date of Procedure: 03/19/23 Procedure(s) Performed: BRIEF HISTORY: Patient is a 52-year-old pleasant white male scheduled for an elective colonoscopy as a part of screening for colon cancer. PROCEDURE PERFORMED: Colonoscopy. PREOPERATIVE DIAGNOSIS: Screening for colon cancer. IV sedation per Anesthesia. PROCEDURE: After informed consent was obtained, the patient, was brought into the endoscopy unit. IV sedation was administered by Anesthesia under continuous monitoring. Digital rectal examination was normal. Initially the Olympus CF-160 flexible video colonoscope was then inserted in the rectum, gradually advanced into the cecum without any difficulty. Careful examination was performed as the scope was gradually being withdrawn. Ileocecal valve and the appendiceal orifice were visualized and appeared normal. Prep was fair. There was sticky stools noted in the base of the cecum there was thoroughly irrigated.. Mucosa of the cecum, ascending colon, transverse colon, descending colon, sigmoid colon, and rectum appeared normal. Retroflexion was performed in the rectum and no lesions were seen. The patient tolerated the procedure well. IMPRESSION: Normal-appearing colon from rectum to cecum with no evidence of colorectal neoplasia . RECOMMENDATIONS: Findings of this examination were discussed with the patient as well as his family. He was advised to have a repeat screening colonoscopy in 10 years
[2023-03-19 14:15] VITALS: BP 116/80; PULSE 75; RESP 15
== END 2023-03-19 14:50 | disposition home or self-care (01) ==
LOC: ORWHC2ENDO 12:17
PROVIDERS: ATTEND Internal Medicine Gastroenterology
DX: Z12.11 Encounter for screening for malignant neoplasm of colon (principal); K21.9 Gastro-esophageal reflux disease without esophagitis; Z87.891 Personal history of nicotine dependence
CPT/HCPCS: 45378; J2704; J2001